=== PATIENT | male | born 1985 | race Caucasian/White ===

== ENCOUNTER 2017-01-25 14:09 | Inpatient (IN) | payer OTHER ==
[~2017-01-25] VITALS: Ht 180.3 cm; Wt 86.2 kg
[2017-01-25 15:19] VITALS: BP_SYST 121
[2017-01-25 16:22] LABS: BILIRUBIN,URINE NEGATIVE (NEGATIVE); BLOOD, URINE NEGATIVE (NEGATIVE); CLARITY/URINE CLEAR (CLEAR); COLOR,URINE YELLOW (YELLOW); GLUCOSE,URINE NEGATIVE (NEGATIVE); KETONES,URINE NEGATIVE (NEGATIVE); LEUKOCYTE ESTERASE ,URINE NEGATIVE (NEGATIVE); NITRITE, URINE NEGATIVE (NEGATIVE); PROTEIN URINE TRACE (NEGATIVE); UROBILINOGEN,URINE 0.2 (0.2-1.0)
[2017-01-25] MEDS ORDERED: NACL 0.9% 1,000 ML IV ONE (16:32)
[2017-01-25] MEDS ORDERED: ONDANSETRON HCL 4 MG/2 ML VIAL IVP ONE (16:45)
[2017-01-25] MEDS ORDERED: HYDROmorphone 1 MG INJ. 1 MG/ML AMPUL IVP ONE (16:45)
[2017-01-25 16:46] LABS: BASOPHILS % (AUTO) 0.3 % (0.0-2.0); EOSINOPHILS # (AUTO) 0.1 K/uL (0.0-0.4); HEMATOCRIT 42.7 % (36-54); HEMOGLOBIN 14.3 g/dL (14.0-18.0); LYMPHOCYTES # (AUTO) 1.6 K/uL (1.0-5.5); LYMPHOCYTES % (AUTO) 16.9 % (20.5-51.5); MEAN CORPUSCULAR HEMOGLOBIN 30 pg (27-31); MEAN CORPUSCULAR HGB CONC 33 % (32-36); MEAN CORPUSCULAR VOLUME 91 fL (79.0-98.0); MONOCYTES # (AUTO) 0.7 K/uL (0.0-1.0); MONOCYTES % (AUTO) 7.3 % (1.7-9.3); NEUTROPHILS # (AUTO) 6.8 K/uL (1.8-7.7); NEUTROPHILS % (AUTO) 74.5 % (40.0-70.0); PLATELET COUNT (AUTO) 169 K/uL (130-430); RED BLOOD CELL COUNT(AUTO) 4.69 MIL/uL (4.2-6.2); RED CELL DISTRIBUTION WIDTH 12.7 % (9.0-15.0); WHITE BLOOD COUNT (AUTO) 9.2 K/uL (4.8-10.8)
[2017-01-25 16:48] LABS: RBC,URINE NONE SEEN /HPF (0-3)
[2017-01-25 16:50] LABS: BACTERIA,URINE FEW /HPF (None Seen)
[2017-01-25 16:51] LABS: MUCUS,URINE 1+ /LPF (None Seen)
[2017-01-25] MEDS ORDERED: IOHEXOL 100 ML IV ONE (17:00)
[2017-01-25 17:01] LABS: INR 1.1 (0.80-1.20)
[2017-01-25 17:03] LABS: ALBUMIN 4.1 g/dL (3.4-4.8); CREATININE 1.08 mg/dL (0.55-1.30); POTASSIUM 3.8 mmol/L (3.5-5.1); TOTAL BILIRUBIN 1.3 mg/dL (0.0-1.0); TOTAL PROTEIN, SERUM 7.8 g/dL (6.4-8.3)
[2017-01-25] MEDS ORDERED: DIPHENHYDRAMINE INJ 50 MG/ML VIAL ONE (17:19)
[2017-01-25] MEDS ORDERED: PIPERACILLIN/TAZOBACTAM 3.375 GM/VIAL (ZOSYN) IV ONE ×2 (17:53→22:19)
[2017-01-25] MEDS ORDERED: DOCUSATE SODIUM 100 MG CAPSULE PO PRN (18:30)
[2017-01-25] MEDS ORDERED: MAGNESIUM SULFATE 50 ML IV PRN (18:30)
[2017-01-25] MEDS ORDERED: MORPHINE 2 MG/ML INJ. SYRINGE IVP PRN (18:30)
[2017-01-25] MEDS ORDERED: D5NS 1,000 ML IV SCH (18:30)
[2017-01-25] MEDS ORDERED: ONDANSETRON HCL 4 MG/2 ML VIAL IVP PRN ×4 (18:30→21:15)
[2017-01-25] MEDS ORDERED: POTASSIUM CHLORIDE 10 MEQ TAB.PRT.SR PO PRN (18:30)
[2017-01-25] MEDS ORDERED: ACETAMINOPHEN 325 MG TABLET PO PRN (18:30)
[2017-01-25] MEDS ORDERED: LORazepam 2 MG/ML VIAL IVP PRN (18:30)
[2017-01-25] MEDS ORDERED: ZOLPIDEM TARTRATE 5 MG TABLET PO PRN (18:30)
[2017-01-25] MEDS ORDERED: LR 1,000 ML IV ONE (20:08)
[2017-01-25] MEDS ORDERED: NALBUPHINE HCL 10 MG/ML AMP IVP PRN (20:15)
[2017-01-25] MEDS ORDERED: ePHEDrine sulfate 50 MG/ML VIAL IVP PRN (20:15)
[2017-01-25] MEDS ORDERED: DIPHENHYDRAMINE INJ 50 MG/ML VIAL IVP PRN (20:15)
[2017-01-25] MEDS ORDERED: NALOXONE HCL 0.4 MG/ML AMP (NARCAN) IVP PRN (20:15)
[2017-01-25] MEDS ORDERED: fentaNYL CITRATE/PF 100 MCG/2 ML AMP IVP PRN (20:15)
[2017-01-25 20:47] VITALS: BP_SYST 124
[2017-01-25 20:53] VITALS: BP_SYST 124
[2017-01-25] MEDS ORDERED: IBUPROFEN 600 MG TABLET PO PRN (21:15)
[2017-01-25] MEDS ORDERED: HYDROmorphone 1 MG INJ. 1 MG/ML AMPUL IVP PRN (21:15)
[2017-01-25] MEDS ORDERED: ONDANSETRON HCL 4 MG/2 ML VIAL IVP SCH (21:15)
[2017-01-25] MEDS ORDERED: HYDROcodone/ACETAMIN 10-325 MG TAB PO PRN (21:15)
[2017-01-25] MEDS ORDERED: KETOROLAC TROMETHAMINE 30 MG VIAL IVP ONE (22:00)
[2017-01-25] MEDS: KCL 20 mEq in D5/0.45NS 1000mL 1,000 ML IV SCH (23:00)
[2017-01-25] MEDS: PIPERACILLIN/TAZO 3.375/DEX-IS 50 ML IV SCH (23:01)
[2017-01-25 23:37] VITALS: BP_SYST 117
[2017-01-26] MEDS ORDERED: PIPERACILLIN/TAZO 3.375/DEX-IS 50 ML IV SCH
[2017-01-26] MEDS ORDERED: IBUPROFEN 600 MG TABLET PO PRN (03:15)
[2017-01-26] MEDS ORDERED: KETOROLAC TROMETHAMINE 30 MG VIAL IVP SCH (04:00)
[2017-01-26] MEDS: PIPERACILLIN/TAZO 3.375/DEX-IS 50 ML IV SCH (05:29)
[2017-01-26] MEDS: KCL 20 mEq in D5/0.45NS 1000mL 1,000 ML IV SCH (05:29)
[2017-01-26 05:56] VITALS: BP_SYST 120
[2017-01-26 07:01] LABS: BASOPHILS % (AUTO) 0.1 % (0.0-2.0); HEMATOCRIT 37.8 % (36-54); HEMOGLOBIN 12.9 g/dL (14.0-18.0); LYMPHOCYTES # (AUTO) 0.5 K/uL (1.0-5.5); LYMPHOCYTES % (AUTO) 6.5 % (20.5-51.5); MEAN CORPUSCULAR HEMOGLOBIN 31 pg (27-31); MEAN CORPUSCULAR HGB CONC 34 % (32-36); MEAN CORPUSCULAR VOLUME 92 fL (79.0-98.0); MONOCYTES # (AUTO) 0.2 K/uL (0.0-1.0); MONOCYTES % (AUTO) 2.8 % (1.7-9.3); NEUTROPHILS # (AUTO) 7.3 K/uL (1.8-7.7); NEUTROPHILS % (AUTO) 90.6 % (40.0-70.0); PLATELET COUNT (AUTO) 144 K/uL (130-430); RED BLOOD CELL COUNT(AUTO) 4.12 MIL/uL (4.2-6.2); RED CELL DISTRIBUTION WIDTH 12.6 % (9.0-15.0)
[2017-01-26 07:32] LABS: CALCIUM 8.8 mg/dL (8.4-11.0); CREATININE 1.16 mg/dL (0.55-1.30); POTASSIUM 4.6 mmol/L (3.5-5.1)
[2017-01-26 09:02] VITALS: BP_SYST 132
[2017-01-26] MEDS ORDERED: CIPR-211 PO (09:51)
[2017-01-26] MEDS ORDERED: HYDR-4100 PO (09:52)
[2017-01-26] MEDS ORDERED: IBUP-1969 PO (09:53)
[2017-01-26] MEDS ORDERED: DOCU-144 PO (09:55)
[2017-01-26 10:55] VITALS: BP_SYST 136
[2017-01-26 13:02] VITALS: BP_SYST 108
== END 2017-01-26 11:25 | disposition home or self-care (01) | DRG 343 ==
LOC: SED 14:09 → SMU 17:40
PROVIDERS: ADMIT General Practice; ATTEND General Practice
PROC: 0DTJ4ZZ Resection of Appendix, Percutaneous Endoscopic Approach (ICD-10-PCS; principal; 2017-01-25 18:00)
DX: K35.80 Unspecified acute appendicitis (principal)
CPT/HCPCS: 36415; 80048; 80053; 81000-TC; 82150-TC; 83605; 83690-TC; 83735-TC; 85025; 85610-TC; 85730-TC; 86886; 86900; 86901; 87040-TC; 88304; 96360; 99285; J1200; J1885; J2270; J2405; J2543; J7030; Q9967